=== PATIENT | female | born 1975 | race African-American/Black ===

== ENCOUNTER 2017-04-05 03:24 | Emergency (ER) | payer MEDICAID ==
[~2017-04-05] VITALS: Ht 165.1 cm; Wt 100.0 kg
[~2017-04-05 03:24] MED LIST: VIC
[2017-04-05] MEDS ORDERED: KETOROLAC 15MG/ML VIAL IM ONE (09:15)
[2017-04-05 09:26] VITALS: BP 121/62
== END 2017-04-05 10:13 | disposition home or self-care (01) ==
LOC: ER 03:34
DX: M54.5 Low back pain (principal); R03.0 Elevated blood-pressure reading, without diagnosis of hypertension; F12.90 Cannabis use, unspecified, uncomplicated
CPT/HCPCS: 81025; 96372; 99283; J1885

== ENCOUNTER 2017-05-07 03:54 | Emergency (ER) | payer MEDICAID ==
[~2017-05-07] VITALS: Ht 165.1 cm; Wt 100.0 kg
[2017-05-07] MEDS ORDERED: HYDROCODONE/ACETAMINOPHEN 5/325MG TABLET PO ONE ×2 (06:15→06:22)
[2017-05-07 06:36] VITALS: BP 119/79
== END 2017-05-07 07:01 | disposition home or self-care (01) ==
LOC: ER 03:54
DX: S43.102A Unspecified dislocation of left acromioclavicular joint, initial encounter (principal); F12.10 Cannabis abuse, uncomplicated; W17.89XA Other fall from one level to another, initial encounter; Y93.89 Activity, other specified; Y92.89 Other specified places as the place of occurrence of the external cause; Y99.8 Other external cause status
CPT/HCPCS: 73030; 99284